=== PATIENT | male | born 1955 | race Caucasian/White ===

== ENCOUNTER 2022-04-24 10:36 | Emergency (ER) | payer OTHER ==
[~2022-04-24] VITALS: Ht 177.8 cm; Wt 79.4 kg
--- NOTE | 2022-04-24 13:19 | NUR ---
CALLED DR. BARRY [phone] WILL CALL US BACK.
[2022-04-24 14:25] VITALS: BP 149/88
--- NOTE | 2022-04-24 14:25 | NUR ---
Patient discharged to home in stable condition. Written and verbal after care instructions given. Patient verbalizes understanding of instruction.
== END 2022-04-24 14:25 | disposition home or self-care (01) ==
LOC: ER 11:19
DX: I82.811 Embolism and thrombosis of superficial veins of right lower extremity (principal)
CPT/HCPCS: 93971-TC